=== PATIENT | female | born 1985 | race Caucasian/White ===

== ENCOUNTER 2022-10-08 13:52 | Emergency (ER) | payer OTHER ==
[2022-10-08 14:06] VITALS: TEMP 98
--- NOTE | 2022-10-08 14:08 | ED ---
Extremity Problem HPI - General Source: patient, RN notes reviewed Mode of arrival: ambulatory Limitations: no limitations - History of Present Illness MD Complaint: extremity pain, extremity swelling <Celi Logan - Last Filed: 10/08/22 14:02> - History of Present Illness -: week(s) (2) Location: left, right, lower extremity History of Same: Yes (during ) Radiation: none Severity scale (1-10): 0 Quality: constant Consistency: constant Improves with: nothing Associated Symptoms: denies other symptoms <Ej Bryant - Last Filed: 10/09/22 00:31> - General Chief complaint: Extremity Problem,Nontraumatic Stated complaint: poss allergic reaction - feet swelling Time Seen by Provider: 10/08/22 14:05 - History of Present Illness Initial comments: This is a 37 year old female who presents to the emergency department for concerns of an allergic reaction due to swelling to both of her feet. Believes that she is having an allergic reaction to the Remeron that she was started on at [facility]. She last took Remeron around 4 days ago and she was on Remeron for around 9 days. Her feet have been swollen for 14 days. She was on Lasix at [facility] for 3 days with no improvement. She has also been on Ibuprofen, Tylenol, and Prednisone with only minimal improvement in symptoms. (Celi Logan) 37-year-old female presents from [facility] with paperwork requesting ul trasound bilateral lower extremities. Patient states she's been having swelling to bilateral lower extremities for the past 13 days. Believes she is having an ALLERGIC reaction to Remeron which she was given to help her sleep. She states they started her on Benadryl and Pepcid and has been taking that for the past 5 days. Also given Lasix for 3 days with no improvement. Patient states last ti me she had bilateral lower extremity swelling was during . She denies any chest pain or difficulty breathing. She states that she wants to go back to [facility] finish her treatment tomorrow. (Ej Bryant) - Related Data Home Medications Medication Instructions Recorded Confirmed Acetaminophen Tab [Tylenol] 650 mg PO Q4H 10/08/22 10/08/22 Amoxic-Pot Clav 875-125Mg 1 tab PO Q12HR 10/08/22 10/08/22 [Augmentin 875-125] Buprenorphine HCl/Naloxone HCl 1 tab SUBLINGUAL BID 10/08/22 10/08/22 [Zubsolv 5.7-1.4 mg Tablet Sl] Calcium, Magnesium, Zinc, With 1 tab PO TID PRN 10/08/22 10/08/22 Vitamin D3 Chlorpheniramine Maleate 4 mg PO Q4H PRN 10/08/22 10/08/22 [Chlor-Trimeton] Ibuprofen [Motrin Ib] 600 mg PO Q6H PRN 10/08/22 10/08/22 Magnesium Hydroxide [Milk of 2,400 mg PO BID PRN 10/08/22 10/08/22 Magnesia] Melatonin 5 mg PO HS 10/08/22 10/08/22 bisacodyL [Dulcolax] 5 mg PO BID PRN 10/08/22 10/08/22 cloNIDine HCL [Catapres] 0.1 - 0.3 mg PO DIRECTED PRN 10/08/22 10/08/22 diphenhydrAMINE [Benadryl] 25 mg PO Q4H PRN 10/08/22 10/08/22 prednisoLONE 20 mg PO BID 10/08/22 10/08/22 Previous Rx's Medication Instructions Recorded hydroCHLOROthiazide 12.5 mg PO DAILY 30 Days #30 cap 10/08/22 Allergies Allergy/AdvReac Type Severity Reaction Status Date / Time azithromycin Allergy Rash/Hives Verified 10/08/22 20:57 [From Zithromax Z-Juan] mirtazapine [From Remeron] Allergy Hallucinati Verified 10/08/22 20:57 ons Review of Systems ROS Other: All systems not noted in ROS Statement are negative. <Celi Logan - Last Filed: 10/08/22 14:02> ROS Other: All systems not noted in ROS Statement are negative. <Ej Bryant - Last Filed: 10/09/22 00:31> ROS Statement: Those systems with pertinent positive or pertinent negative responses have been documented in the HPI. General Exam <Celi Logan - Last Filed: 10/08/22 14:02> Limitations: no limitations General appearance: alert, anxious Head exam: Present: atraumatic Eye exam: Present: normal appearance. Absent: scleral icterus, conjunctival injection, periorbital swelling ENT exam: Present: mucous membranes moist Neck exam: Present: full ROM. Absent: tenderness, meningismus Respiratory exam: Present: normal lung sounds bilaterally. Absent: respiratory distress, accessory muscle use Cardiovascular Exam: Present: regular rate GI/Abdominal exam: Present: soft. Absent: distended, tenderness, rigid Extremities exam: Present: full ROM, normal capillary refill, pedal edema (non pitting). Absent: tenderness, calf tenderness Back exam: Absent: tenderness Neurological exam: Present: alert, oriented X3 Psychiatric exam: Present: anxious Skin exam: Present: warm, dry, normal color. Absent: cyanosis, diaphoretic, petechiae, pallor <Ej Bryant - Last Filed: 10/09/22 00:31> - General Exam Comments Initial Comments: Visual Physical Exam Vital signs reviewed General: Well-appearing, nontoxic, no acute distress. Head: Normocephalic, atraumatic Eyes: PERRLA, EOMI ENT: Airway patent Chest: Nonlabored breathing Skin: No visual rash, normal skin tone Neuro: Alert and oriented 3 Musculoskeletal: Swelling to the bilateral feet I performed the QuickNote portion of this chart. Signed Celi Logan PA-C. (Celi Logan) Course Vital Signs 10/08/22 10/08/22 10/08/22 14:03 20:30 21:35 Temperature 98 F Pulse Rate 90 96 Respiratory 16 18 Rate Blood Pressure 157/100 171/117 150/95 O2 Sat by Pulse 96 100 Oximetry Medical Decision Making - Lab Data Result diagrams: 10/08/22 14:54 10/08/22 14:54 <Ej Bryant - Last Filed: 10/09/22 00:31> - Medical Decision Making Was pt. sent in by a medical professional or institution ([facility], [employer], urgent care, hospital, or custodial...) When possible be specific @ -No Did you speak to anyone other than the patient for history (EMS, parent, family, police, friend...)? What history was obtained from this source @ -No Did you review nursing and triage notes (agree or disagree)? Why? @ -I reviewed and agree with nursing and triage notes Were old charts reviewed (outside hosp., previous admission, EMS record, old EKG, old radiological studies, urgent care reports/EKG's, custodial records)? Report findings @ -No old charts were reviewed Differential Diagnosis (chest pain, altered mental status, abdominal pain women, abdominal pain men, vaginal bleeding, weakness, fever, dyspnea, syncope, headache, dizziness, GI bleed, back pain, seizure, CVA, palpatations, mental health, musculoskeletal)? @ -Medication side effect, congestive heart failure, if retention, DVT, this is not all inclusive list EKG interpreted by me (3pts min.). @ -n/a X-rays interpreted by me (1pt min.). @ -None done CT interpreted by me (1pt min.). @ -None done U/S interpreted by me (1pt. min.). @ -None done What testing was considered but not performed or refused? (CT, X-rays, U/S, labs)? Why? @ -None What meds were considered but not given or refused? Why? @ -Lasix was considered however lung sounds are clear to auscultation. Edema is not pitting. No history of congestive heart failure Did you discuss the management of the patient with other professionals (professionals i.e. , PA, GRA[employer], lab, RT, psych nurse, director of social work, career development coordinator, teacher, ordnance officer, clinical case manager)? Give summary @ -No Was smoking cessation discussed for >3mins.? @ -No Was critical care preformed (if so, how long)? @ -No Were there social determinants of health that impacted care today? How? (Homelessness, low income, unemployed, alcoholism, drug addiction, transportation, low edu. Level, literacy, decrease access to med. care, [facility], rehab)? @ -No Was there de-escalation of care discussed even if they declined (Discuss DNR or withdrawal of care, Hospice)? DNR status @ -No What co-morbidities impacted this encounter? (DM, HTN, Smoking, COPD, CAD, Cancer, CVA, ARF, Chemo, Hep., AIDS, mental health diagnosis, sleep apnea, morbid obesity)? @ -Benzodiazepine abuse, hypertension Was patient admitted / discharged? Hospital course, mention meds given and route, prescriptions, significant lab abnormalities, going to OR and other pertinent info. @ -Discharged 37-year-old female presents from [facility] with paperwork requesting ultrasound bilateral lower extremities. Patient states she's been having sw elling to bilateral lower extremities for the past 13 days. Believes she is having an ALLERGIC reaction to Remeron which she was given to help her sleep. She states they started her on Benadryl and Pepcid and has been taking that for the past 5 days. Also given Lasix for 3 days with no improvement. Patient states last time she had bilateral lower extremity swelling was during . She denies any chest pain or difficulty breathing. No fevers. No nausea vomiting or diarrhea. Patient is at [facility] for prescription drug abuse. She states that she wants to go back to [facility] finish her treatment tomorrow. CBC and electrolytes are unremarkable. BNP 524. CRP less than 0.5 Ultrasound bilateral lower extremity show no evidence of DVT. X-ray bilateral feet ordered by triage provider showed diffuse soft tissue edema. Hypertrophic arthropathy first MTP bilaterally Patient is tearful requesting Benadryl and steroids. States that it seems to help after they started giving it to her at [facility]. Patient has no systemic signs of an ALLERGIC reaction, this may possibly be a side effect of the Remeron. We did discuss her elevated blood pressure which she has not been on medication in a long time. Did have hydrochlorothiazide prescribed several years ago for her hypertension. She was given a dose of hydrochlorothiazide in the emergency room. Hydrochlorothiazide prescription was provided. Blood pressure improved. She is tearful states she just wants to leave the hospital. States does not have a primary care doctor to follow-up with and is at [facility] for benzodiazepine . She was encouraged to obtain a primary care doctor to monitor her blood pressure Vital signs are stable Case discussed with Dr. Hogan Undiagnosed new problem with uncertain prognosis? @ -No Drug Therapy requiring intensive monitoring for toxicity (Heparin, Nitro, Insulin, Cardizem)? @ -No Were any procedures done? @ -No Diagnosis/symptom? @ -Hypertension, bilateral lower extremity edema Acute, or Chronic, or Acute on Chronic? @ -Acute Uncomplicated (without systemic symptoms) or Complicated (systemic symptoms)? @ -Uncomplicated Side effects of treatment? @ -No Exacerbation, Progression, or Severe Exacerbation? @ -No Poses a threat to life or bodily function? How? (Chest pain, [place], [place], pneumonia, PE, COPD, DKA, ARF, appy, cholecystitis, CVA, Diverticulitis, Homicidal, Suicidal, threat to staff... and all critical care pts) @ -No ([email or web address]) - Lab Data Lab Results 10/08/22 10/08/22 10/08/22 Range/Units 14:54 14:54 15:00 WBC 8.2 (3.8-10.6) k/uL RBC 4.22 (3.80-5.40) m/uL Hgb 13.4 (11.4-16.0) gm/dL Hct 38.9 (34.0-46.0) % MCV 92.4 (80.0-100.0) fL MCH 31.8 (25.0-35.0) pg MCHC 34.4 (31.0-37.0) g/dL RDW 13.1 (11.5-15.5) % Plt Count 227 (150-450) k/uL MPV 7.3 Neutrophils % 83 % Lymphocytes % 12 % Monocytes % 4 % Eosinophils % 1 % Basophils % 0 % Neutrophils # 6.8 (1.3-7.7) k/uL Lymphocytes # 0.9 L (1.0-4.8) k/uL Monocytes # 0.3 (0-1.0) k/uL Eosinophils # 0.1 (0-0.7) k/uL Basophils # 0.0 (0-0.2) k/uL Sodium 138 (137-145) mmol/L Potassium 4.7 (3.5-5.1) mmol/L Chloride 107 (98-107) mmol/L Carbon Dioxide 24 (22-30) mmol/L Anion Gap 7 mmol/L BUN 14 (7-17) mg/dL Creatinine 0.63 (0.52-1.04) mg/dL Est GFR (CKD-EPI)AfAm >90 (>60 ml/min/1.73 sqM) Est GFR (CKD-EPI)NonAf >90 (>60 ml/min/1.73 sqM) Glucose 126 H (74-99) mg/dL Calcium 9.1 (8.4-10.2) mg/dL Total Bilirubin 0.3 (0.2-1.3) mg/dL AST 25 (14-36) U/L ALT 29 (4-34) U/L Alkaline Phosphatase 47 (38-126) U/L C-Reactive Protein <0.5 (<1.0) mg/dL NT-Pro-B Natriuret Pep 524 pg/mL Total Protein 6.6 (6.3-8.2) g/dL Albumin 3.9 (3.5-5.0) g/dL Urine Color Yellow Urine Appearance Cloudy H (Clear) Urine pH 7.5 (5.0-8.0) Ur Specific [place] 1.016 (1.001-1.035) Urine Protein Negative (Negative) Urine Glucose (UA) Trace H (Negative) Urine Ketones Negative (Negative) Urine Blood Negative (Negative) Urine Nitrite Negative (Negative) Urine Bilirubin Negative (Negative) Urine Urobilinogen <2.0 (<2.0) mg/dL Ur Leukocyte Esterase Negative (Negative) Urine WBC 2 (0-5) /hpf Ur Squamous Epith Cells 4 (0-4) /hpf Urine Mucus Rare H (None) /hpf Disposition <Celi Logan - Last Filed: 10/08/22 14:02> Is patient prescribed a controlled substance at d/c from ED?: No Time of Disposition: 21:44 <Ej Bryant - Last Filed: 10/09/22 00:31> Clinical Impression: Leg edema, Hypertension Disposition: HOME SELF-CARE Condition: Good Instructions (If sedation given, give patient instructions): Leg Edema (ED), Hypertension (ED) Additional Instructions: Take Hydrochlorothiazide daily for hypertension and leg swelling. Elevate legs and wear compression socks. Follow up with the primary care doctor for continuation of care and reevaluation. Return to the emergency room with any new or concerning symptoms. Prescriptions: hydroCHLOROthiazide 12.5 mg PO DAILY 30 Days #30 cap Referrals: None,Stated [Primary Care Provider] - 1-2 days
[2022-10-08 15:21] LABS: Basophils % (A) 0 %; Eosinophils # (A) 0.1 k/uL (0-0.7); Eosinophils % (A) 1 %; HCT 38.9 % (34.0-46.0); HGB 13.4 gm/dL (11.4-16.0); Lymphocytes # (A) 0.9 k/uL (1.0-4.8); Lymphocytes % (A) 12 %; MCH 31.8 pg (25.0-35.0); MCHC 34.4 g/dL (31.0-37.0); MCV 92.4 fL (80.0-100.0); Mean Platelet Volume 7.3; Monocytes # (A) 0.3 k/uL (0-1.0); Monocytes % (A) 4 %; Neutrophils # (A) 6.8 k/uL (1.3-7.7); Neutrophils % (A) 83 %; Platelet Count 227 k/uL (150-450); RBC 4.22 m/uL (3.80-5.40); RDW 13.1 % (11.5-15.5); WBC 8.2 k/uL (3.8-10.6)
[2022-10-08 15:22] LABS: Appearance,Urine Cloudy (Clear); Bilirubin,Urine Negative (Negative); Blood,Urine Negative (Negative); Color,Urine Yellow; Glucose,Urine (UA) Trace (Negative); Ketones,Urine Negative (Negative); Leukocyte Esterase,Urine Negative (Negative); Mucus,Urine Rare /hpf; Nitrite,Urine Negative (Negative); PH, Urine 7.5 (5.0-8.0); Protein,Urine Negative (Negative); Specific Gravity,Urine 1.016 (1.001-1.035); Squamous Epithelial Cell,Urine 4 /hpf (0-4); Urobilinogen,Urine <2.0 mg/dL (<2.0); WBC,Urine 2 /hpf (0-5)
--- NOTE | 2022-10-08 15:24 | XR ---
EXAMINATION TYPE: XR foot complete bilateral DATE OF EXAM: 10/08/2022 COMPARISON: NONE HISTORY: Pain TECHNIQUE: Three views are submitted. FINDINGS: The osseous structures are intact. There is no acute fracture or dislocation. There is a hallux valgus deformity bilaterally greater on the right with bile hypertrophic arthropath y of the bilateral first MTP. Small bunion noted bilaterally. There is diffuse soft tissue swelling. There is a large plantar calcaneal spur on the left. No destructive changes. Soft tissue calcification is seen on the left. IMPRESSION: 1. Bilateral diffuse soft tissue edema. 2. Hypertrophic arthropathy first MTP bilaterally.
[2022-10-08 15:26] LABS: ALT 29 U/L (4-34); AST 25 U/L (14-36); African American GFR (CKD) >90 (>60 ml/min/1.73 sqM); Albumin 3.9 g/dL (3.5-5.0); Alkaline Phosphatase 47 U/L (38-126); Anion Gap 7 mmol/L; Blood Urea Nitrogen 14 mg/dL (7-17); Calcium 9.1 mg/dL (8.4-10.2); Carbon Dioxide 24 mmol/L (22-30); Chloride 107 mmol/L (98-107); Glucose 126 mg/dL (74-99); Non-African American GFR(CKD) >90 (>60 ml/min/1.73 sqM); Potassium 4.7 mmol/L (3.5-5.1); Sodium 138 mmol/L (137-145); Total Bilirubin 0.3 mg/dL (0.2-1.3); Total Protein 6.6 g/dL (6.3-8.2)
[2022-10-08 15:32] LABS: NT-Pro-B-Type Natriuretic Pept 524 pg/mL
[2022-10-08 15:50] LABS: C Reactive Protein <0.5 mg/dL (<1.0)
[2022-10-08 20:31] VITALS: PULSE 96; RESP 18
--- NOTE | 2022-10-08 21:19 | US ---
EXAMINATION TYPE: US venous doppler duplex LE DATE OF EXAM: 10/08/2022 8:44 PM COMPARISON: NONE CLINICAL INDICATION: Female, 37 years old with history of swelling, sent for [facility]; Calf, a nkles, and feet swelling x 2 weeks. Pt states she thinks it is an allergic reaction to a medication. No hx of DVT. Not on blood thinners SIDE PERFORMED: Bilateral TECHNIQUE: The lower extremity deep venous system is examined utilizing real time linear array sonog fausto with graded compression, doppler sonography and color-flow sonography. VESSELS IMAGED: Common Femoral Vein Deep Femoral Vein Greater Saphenous Vein * Femoral Vein Popliteal Vein Small Saphenous Vein * Proximal Calf Veins (* superficial vessels) Grayscale, color doppler, spectral doppler imaging performed of the deep veins of the lower extremiti es. There is normal flow, compressibility, vascular waveforms. Right Leg: No evidence for DVT Left Leg: No evidence for DVT IMPRESSION: No deep venous thrombosis of the bilateral lower extremities.
[2022-10-08] MEDS ORDERED: hydroCHLOROthiazide 12.5 MG CAP PO STA (21:28)
[2022-10-08] MEDS ORDERED: hydrALAZINE HCL 20 MG/ML 1 ML VIAL IVP STA (21:29)
[2022-10-08 21:35] VITALS: BP 150/95
== END 2022-10-08 22:06 | disposition home or self-care (01) ==
LOC: EC 13:52
DX: R60.0 Localized edema (principal); I10 Essential (primary) hypertension; Z79.899 Other long term (current) drug therapy; Z88.8 Allergy status to other drugs, medicaments and biological substances
CPT/HCPCS: 36415; 80053; 81001; 83880; 85025; 86140; 93970; 99284